=== PATIENT | female | born 1950 | race Caucasian/White ===

== ENCOUNTER 2022-11-08 10:38 | Observation (INO) ==
[2022-11-08 11:25] LABS: ABS Basophils 0.1 10^3/uL (0.0-0.1); ABS Lymphocytes 1.5 10^3/uL (1.0-4.8); ABS Monocytes 0.6 10^3/uL (0.0-0.9); ABS Neutrophils 8.9 10^3/uL (1.5-7.6); ABS Nucleated RBC 0.01 10^3/ul; Hematocrit 41.2 % (35-45); Hemoglobin 14.4 g/dL (11.5-14.3); Lymphocyte % 13.5 %; Mean Corpuscular Hemoglobin 30.9 pg (27-33); Mean Corpuscular Hgb Conc 34.9 g/dL (31-36); Mean Corpuscular Volume 88.5 fL (80-97); Mean Platelet Volume 7.3 fL (7.5-11.2); Nucleated Red Blood Cells % 0.1 /100 WBC (0.0-0.4); Platelet Count 333 10^3/uL (150-450); Red Blood Count 4.65 10^6/uL (3.63-4.92); Red Cell Distribution Width 13.7 % (12-17); White Blood Count 11.1 10^3/uL (3.8-11.8)
[2022-11-08] MEDS ORDERED: Lactated Ringers 1000 ml BAG 1,000 ML IV ONE ×2 (11:43→15:30)
[2022-11-08 12:37] LABS: Albumin 3.8 g/dL (3.2-5.2); Magnesium 1.9 mg/dL (1.9-2.7); Potassium 3.3 mmol/L (3.5-5.0); Total Bilirubin 1.4 mg/dL (0.2-1.0)
[2022-11-08 12:42] LABS: Creatinine, Serum 0.72 mg/dL (0.51-0.95)
[2022-11-08 12:43] LABS: Albumin/Globulin Ratio 1.4 (1-3); Globulin 2.7 g/dL (2-4); Total Protein 6.5 g/dL (6.4-8.9); eGFR CKD-EPI 88.8 (>60)
[2022-11-08] MEDS ORDERED: Potassium Chlor 20 meq TAB.ER PO ONE (12:57)
[2022-11-08] MEDS ORDERED: Albuterol/Ipratropium NEB.SOL (2.5/0.5 MG) 3 ML NEB.SOLN INH ONE (13:03)
[2022-11-08 13:25] LABS: High Sensitivity Troponin 1 Hr 11 pg/mL (<15)
[2022-11-08] MEDS ORDERED: Magnesium Hydroxide LIQ 30 ML UDC PO PRN (15:23)
[2022-11-08] MEDS ORDERED: Polyethylene Glycol 3350 17 GM PACKET PO PRN (15:23)
[2022-11-08] MEDS ORDERED: Senna TAB 8.6 mg TAB PO PRN (15:23)
[2022-11-08] MEDS ORDERED: Al Hydrox/Mg Hydrox/Simet LIQ 30 ML UDC PO PRN (15:23)
[2022-11-08] MEDS ORDERED: Albuterol HFA INHALER 8 gm MDI INH PRN (15:26)
[2022-11-08] MEDS ORDERED: Enoxaparin 30 MG/0.3 ML SYR SUBCUT SCH (16:00)
[2022-11-08] MEDS ORDERED: Fluticasone-Salmeterol 250-50 DISKUS NF INH SCH (21:00)
[2022-11-09 05:52] LABS: ABS Basophils 0.1 10^3/uL (0.0-0.1); ABS Lymphocytes 1.7 10^3/uL (1.0-4.8); ABS Monocytes 0.6 10^3/uL (0.0-0.9); ABS Neutrophils 6.4 10^3/uL (1.5-7.6); Eosinophil % 0.5 %; Hematocrit 36.3 % (35-45); Hemoglobin 12.6 g/dL (11.5-14.3); Lymphocyte % 19.4 %; Mean Corpuscular Hgb Conc 34.7 g/dL (31-36); Mean Corpuscular Volume 89.4 fL (80-97); Mean Platelet Volume 6.8 fL (7.5-11.2); Platelet Count 352 10^3/uL (150-450); Red Blood Count 4.06 10^6/uL (3.63-4.92); Red Cell Distribution Width 13.5 % (12-17); White Blood Count 8.8 10^3/uL (3.8-11.8)
[2022-11-09] MEDS: CMCS: FLUTICAS/UMECLI/VILANT 200-62.5-25 MDI (NF) INH SCH (07:18)
[2022-11-09 08:42] LABS: Calcium 8.1 mg/dL (8.6-10.3); Creatinine, Serum 0.52 mg/dL (0.51-0.95); Potassium 3.7 mmol/L (3.5-5.0); eGFR CKD-EPI 98.7 (>60)
[2022-11-09 10:39] LABS: Magnesium 1.9 mg/dL (1.9-2.7)
[2022-11-09] MEDS: Fluticasone NASAL SPRAY 50MCG 16 gm SPRAY BTL INTRANASAL SCH (10:49)
[2022-11-09] MEDS ORDERED: Lactated Ringers 1000 ml BAG 1,000 ML IV ONE (14:21)
[2022-11-09] MEDS ORDERED: NS 0.9% 1000 ml BAG 500 ML IV ONE (14:30)
[2022-11-09] MEDS ORDERED: NS 0.9% 1000 ml BAG 1,000 ML IV ONE (17:11)
[2022-11-09 18:39] LABS: Calcium 8.2 mg/dL (8.6-10.3); Creatinine, Serum 0.63 mg/dL (0.51-0.95); Potassium 3.3 mmol/L (3.5-5.0); eGFR CKD-EPI 94.2 (>60)
[2022-11-09 21:08] LABS: Calcium 7.6 mg/dL (8.6-10.3); Creatinine, Serum 0.55 mg/dL (0.51-0.95); Potassium 3.1 mmol/L (3.5-5.0); eGFR CKD-EPI 97.3 (>60)
[2022-11-10] MEDS ORDERED: Potassium Chlor 20 meq TAB.ER PO ONE ×2 (03:07→07:42)
[2022-11-10 06:11] LABS: ABS Basophils 0.1 10^3/uL (0.0-0.1); ABS Lymphocytes 1.5 10^3/uL (1.0-4.8); ABS Monocytes 0.6 10^3/uL (0.0-0.9); ABS Nucleated RBC 0.01 10^3/ul; Eosinophil % 0.5 %; Hematocrit 34.2 % (35-45); Hemoglobin 11.9 g/dL (11.5-14.3); Lymphocyte % 18.5 %; Mean Corpuscular Hemoglobin 30.6 pg (27-33); Mean Corpuscular Hgb Conc 34.8 g/dL (31-36); Mean Corpuscular Volume 87.9 fL (80-97); Mean Platelet Volume 6.9 fL (7.5-11.2); Nucleated Red Blood Cells % 0.1 /100 WBC (0.0-0.4); Platelet Count 367 10^3/uL (150-450); Red Blood Count 3.88 10^6/uL (3.63-4.92); Red Cell Distribution Width 13.7 % (12-17); White Blood Count 8.2 10^3/uL (3.8-11.8)
[2022-11-10 06:30] LABS: Calcium 7.6 mg/dL (8.6-10.3); Creatinine, Serum 0.49 mg/dL (0.51-0.95); Magnesium 1.7 mg/dL (1.9-2.7); Potassium 3.7 mmol/L (3.5-5.0); eGFR CKD-EPI 100.1 (>60)
[2022-11-10] MEDS ORDERED: Magnesium Sulfate IV 3 GM in NS 0.9% 100 ml BAG 100 ML IVPB ONE (07:42)
[2022-11-10] MEDS ORDERED: Sulfur Hexaflouride MICROSPHR 25 MG VIAL ONE (08:55)
[2022-11-10] MEDS: CMCS: FLUTICAS/UMECLI/VILANT 200-62.5-25 MDI (NF) INH SCH (09:16)
[2022-11-10] MEDS ORDERED: Sodium Phosphate IV 0 MMOL in NS 0.9% 250 ml 250 ML IV ONE (09:33)
[2022-11-10] MEDS ORDERED: Sodium Phosphate IV 15 MMOL in NS 0.9% 250 ml 250 ML IV ONE (10:00)
[2022-11-10] MEDS: Fluticasone NASAL SPRAY 50MCG 16 gm SPRAY BTL INTRANASAL SCH (11:12)
[2022-11-10 15:28] VITALS: BP 113/69
== END 2022-11-10 17:10 | disposition home or self-care (01) ==
LOC: EDHOLD 10:38 → ED 10:38 → EDHOLD 19:14 → MED 21:31
PROVIDERS: ADMIT Internal Medicine; ATTEND Internal Medicine